=== PATIENT | male | born 1985 | race African-American/Black ===

== ENCOUNTER 2020-08-22 07:22 | Emergency (ER) | payer MEDICAID, SELFPAY ==
[2020-08-22 07:23] VITALS: BP 155/126; PULSE 82; RESP 20; TEMP 36.2; O2SAT 100; BMI 56.2
--- NOTE | 2020-08-22 07:44 | ED.VIS.URI ---
History of Present Illness Chief Complaint: General Illness Narrative: Patient presenting for coronavirus type symptoms. Patient states that for 2 days he has been having headache, body aches, nausea with decreased appetite and inability to smell, loose diarrhea, and coughs. Patient denies that he is had any shortness of breath. Denies any sick contacts. Patient does have an underlying history of hypertension he denies any history of lung disease or immunosuppression. He denies any shortness of breath associated with this. Review of systems otherwise negative. Past Medical History - Allergies and Home Meds Allergies/Adverse Reactions: Allergies lisinopril Allergy (Verified 08/22/20 07:25) Anaphylaxis Prior records reviewed: Yes Past Medical History: - - Hypertension Review of Systems General: Reports: Chills, Malaise Eyes: Denies: Visual changes - bilaterally, Diplopia ENT: Denies: Rhinorrhea, Sore throat Cardiovascular: Denies: Chest pain, Palpitations Respiratory: Reports: Cough Gastrointestinal: Reports: Nausea, Diarrhea Genitourinary: Denies: Dysuria, Hematuria, Frequency Musculoskeletal: Denies: Back pain, Extremity Pain Skin: Denies: Rash, Wounds Neurological: Denies: Headache, Weakness, Numbness Physical Exam Vital Signs/Narrative: Vital Signs Temp Pulse Resp BP Pulse Ox 08/22/20 07:23 97.2 F L 82 20 H 155/126 H 100 Inital Vital Signs reviewed: Yes General: Well nourished, Well developed Head: Normocephalic, Atraumatic Eyes: Perrl, EOMI Ears: Normal external canal, TM's clear Nose: Normal Inspection, No Rhinorrhea Mouth/Throat: Normal Inspection, No Posterior Erythema Neck: Supple, Nontender Cardiovascular: Regular rate, Regular rhythm, No murmurs Respiratory: No distress, CTA bilaterally, Chest nontender Abdomen: Soft, Nontender, Nondistended, Normal bowel sounds Back: Nontender, Normal Inspection Extremities: Nontender, No edema Skin: Normal color, No rash Neurological: Alert, Oriented x3, Cranial nerves II-XII grossly intact, Normal Strength, Normal Sensation Psychological: Normal affect Diagnostic/Tx/Re-eval - Medical Decision Making Patient presented with symptoms that would seem consistent with a viral illness, likely coronavirus. He has stable vitals and a benign exam he is well-hydrated. There is no indication for IV or lab work. Patient does not meet criteria for monoclonal antibodies or antivirals. Patient was educated on signs and symptoms for which to return. Patient was discharged. ED Disposition - Plan for ED Patient: Disposition: Home or Assisted Living Diagnosis: Suspected 2019 novel coronavirus infection Instructions: Coronavirus Disease 2019 (COVID-19): Caring for Yourself or Others, Pending Outpatient COVID Test Additional Instructions: Followup with your PCP in 10-14 days
[2020-08-22 08:27] VITALS: BP 155/126; BP 157/98; PULSE 82; PULSE 84; RESP 20; TEMP 36.2; O2SAT 100
== END 2020-08-22 08:31 | disposition home or self-care (01) ==
LOC: ED 07:48
PROVIDERS: Emergency Provider Emergency Medicine
DX: U07.1 COVID-19 (principal); I10 Essential (primary) hypertension; Z88.8 Allergy status to other drugs, medicaments and biological substances
CPT/HCPCS: 87635; 99282; U0005; U0003

== ENCOUNTER 2021-09-13 09:26 | Emergency (ER) | payer OTHER, BC, MEDICAID, SELFPAY ==
[2021-09-13 09:27] VITALS: BP 157/110; PULSE 102; RESP 20; TEMP 36.6; O2SAT 100; BMI 49.4
[2021-09-13] MEDS: predniSONE 20 MG Tablet 60 MG PO (10:13)
[2021-09-13] MEDS: oxyCODONE 5 MG Tablet PO (10:13)
--- NOTE | 2021-09-13 13:20 | ED.VIS.LOWEX ---
HPI History of Present Illness Chief Complaint: Lower Extremity Injury Narrative Narrative: 36-year-old male presenting with left foot pain. He states he believes having a gout flare. Has had this in the past and states it was treated with steroids and pain medication. Patient states that he does not have a primary care physician and is not currently on anything to prevent gout. Patient denies fever, chills. He denies any trauma to the foot. [facility] Medical History Gout Home Medications ondansetron 4 mg PO Q8H PRN PRN #10 tab 08/22/20 [Rx Last Taken Unknown] oxycodone 5 mg PO Q6H PRN 3 Days #12 tab 09/13/21 [Rx Last Taken Unknown] prednisone 10 mg PO DAILY #36 tab 09/13/21 [Rx Last Taken Unknown] Allergy/AdvReac Type Severity Reaction Status Date / Time lisinopril Allergy Anaphylaxis Verified 09/13/21 09:29 Social History Smoking Status: Never smoker ROS ROS ED Constitutional Constitutional ED: Denies chills or fever(s) Eyes Eyes: Denies blurry vision or diplopia ENT ENT ED: Denies rhinorrhea or sore throat Cardiovascular Cardiovascular: Denies chest pain or palpitations Respiratory/Chest Respiratory/Chest: Denies cough, dyspnea or sputum Gastrointestinal Gastrointestinal: Denies abdominal pain or nausea Genitourinary Genitourinary ED: Denies dysuria or hematuria Musculoskeletal Musculoskeletal: Reports other Details: Left foot pain Integumentary Denies rash Neurologic Neurologic: Denies headache(s) or paresthesias EXAM Physical Exam Const Vital Signs: 09/13/21 09:27 Temperature 97.9 F Temperature Source Temporal Pulse Rate 102 H Respiratory Rate 20 H Blood Pressure 157/110 H Blood Pressure Mean 125 Pulse Ox 100 Oxygen Delivery Method Room Air Positive well nourished General Appearance ED: NAD HEENT Reports moist mucous membranes normocephalic Eyes PERRL Resp normal respiratory effort and clear to auscultation bilaterally Cardio regular rate and regular rhythm Extremity Extremity Narrative: Tenderness to palpation on the lateral aspect of the left foot. There is no sign of cellulitis. The ankle is nontender on the left. No toe pain. There is slight edema of the left foot. Neuro oriented x3 Sensorium / Orientation: alert Psych mental status grossly normal Skin Rashes: no rashes MDM MDM MDM Narrative Medical decision making narrative: Patient presenting with gout flare. He will be started on prednisone taper and he will be given oxycodone for pain until he can get follow-up with a primary care physician. Patient was amenable to this plan and he is discharged home in stable condition. Given return precautions. Impression: 1 gout flare Discharge Plan Triage Chief Complaint: Lower Extremity Injury ED Provider: Zac Banks Dx/Rx/DC Orders Instructions: ED Gout, ED Gout Diet Prescriptions: New prednisone 10 mg tablets,dose pack 10 mg PO DAILY Qty: 36 RF: 0 oxycodone 5 mg tablet 5 mg PO Q6H PRN (Reason: pain) 3 Days Qty: 12 RF: 0 No Action ondansetron 4 MG tablet 4 mg PO Q8H PRN PRN (Reason: Nausea) Qty: 10 RF: 0 Stand Alone Forms: ED Work / School Excuse Primary Care Provider: Care Physician,No Primary Referrals: Chelo Carmona MD [STAFF PHYSICIAN] - 3-5 Days Alfredito Frausto DPM [STAFF PHYSICIAN] - 3-5 Days Care Physician,No Primary [Primary Care Provider] - Disposition Disposition: Home, Self Care Discharge Date/Time: 09/13/21 10:42
== END 2021-09-13 10:42 | disposition home or self-care (01) ==
LOC: ED 10:22
PROVIDERS: Emergency Provider Student in an Organized Health Care Education/Training Program; Visit Provider Student in an Organized Health Care Education/Training Program
DX: M10.9 Gout, unspecified (principal)
CPT/HCPCS: 99283